=== PATIENT | male | born 1965 | race Caucasian/White ===

== ENCOUNTER 2018-07-29 00:37 | Emergency (ER) | payer MEDICAID ==
[~2018-07-29] VITALS: Ht 182.9 cm; Wt 106.6 kg
[~2018-07-29 00:37] MED LIST: ACCURETIC 20-11 EACH PO; CARVEDILOL12.5 MG PO
[2018-07-29] MEDS ORDERED: TRAMADOL 50 MG50 MG PO (01:23)
[2018-07-29] MEDS ORDERED: NORCO 5-325 TA1 EACH PO (01:24)
[2018-07-29] MEDS ORDERED: PRINIVIL20 MG PO (01:24)
[2018-07-29] MEDS ORDERED: HYDROCHLOROTH12.5 M1 PO (01:25)
[2018-07-29] MEDS ORDERED: LYRICA 50 MG50 MG PO (01:25)
[2018-07-29] MEDS ORDERED: RESTORIL15 MG PO (01:26)
[2018-07-29 04:12] VITALS: BP 127/90
== END 2018-07-29 04:13 | disposition home or self-care (01) ==
LOC: M.ERS 00:37
DX: R51 Headache (principal); I10 Essential (primary) hypertension; G62.9 Polyneuropathy, unspecified